=== PATIENT | female | born 1955 | race Asian ===

== ENCOUNTER 2020-06-06 04:56 | Observation (INO) | payer MEDICARE, OTHER, SELFPAY ==
[2020-06-06] VITALS (21 sets, daily range): BP systolic 122–200; BP diastolic 61–93; PULSE 76–90; RESP 14–21; TEMP 36.4–36.8; O2SAT 96–100; BMI 24.2; BMI 24.5
--- NOTE | 2020-06-06 05:00 | DI.RAD.S_ITS ---
PROCEDURE: XR CHEST 1V INDICATIONS: shortness of breath TECHNIQUE: One view of the chest was acquired. COMPARISON: None. FINDINGS: Surgical changes and devices: None. Lungs and pleura: Lungs are clear. No pleural effusions or pneumothorax. Mild increased pulmonary vascularity. Mediastinum: Mediastinal contours appear normal. Heart size is enlarged. Bones and chest wall: No suspicious bony lesions. Overlying soft tissues appear unremarkable. IMPRESSION: Mild increased vascularity suggestive of edema. Dictated by: Sameera Linn M.D. on 06/06/2020 at 9:23 Approved by: Sameera Linn M.D. on 06/06/2020 at 9:25
--- NOTE | 2020-06-06 05:23 | ED_ITS ---
HPI - Chest Pain General Chief Complaint: Chest Pain Stated Complaint: hard to breath Time Seen by Provider: 06/06/20 04:58 Source: patient Mode of arrival: Ambulatory Limitations: no limitations and language barrier History of Present Illness HPI narrative: Patient is a 64-year-old female who arrives for evaluation of left-sided chest pressure. Her arrival stated complaint was that it was hard to breathe however upon further evaluation by myself and nursing staff it appears she is here more for chest pain than shortness of breath. She does states that she has left-sided pain that started approximately 2100 hours last night. She was cooking at the time of onset. She thinks that it has been consistent since then. She thinks she has had all night however it does seem to have times when it is worse than others. Last evening she thought she was nauseous but not currently. Has tried a heating pad over the area without any improvement. She is diabetic. Has never anything like this in the past. Related Data Allergies Allergy/AdvReac Type Severity Reaction Status Date / Time No Known Drug Allergies Allergy Verified 06/06/20 05:15 Review of Systems Constitutional Constitutional: Denies fever(s) and Denies headache(s) ENT Ears, Nose, Mouth, and Throat: Denies headache(s) Cardiovascular Cardiovascular: Reports chest pain Respiratory Respiratory: Denies cough and Reports pain on inspiration Gastrointestinal Gastrointestinal: Denies abdominal pain and Denies vomiting Integumentary/Breasts Skin/Breast: Denies lesions and Denies rash Neurologic Neurologic: Denies behavioral changes and Denies headache(s) Psychiatric Psychiatric: Denies behavioral changes Hematologic/Lymphatic On Anticoagulants: No Allergic/Immunologic Allergic/Immunologic: Denies urticaria Patient History Medical History (Updated 06/06/20 @ 06:23 by Rogerio Gee DO) Diabetes Social History Smoking Status: Never smoker Smoking Status: Never smoker alcohol intake frequency: 0-2 drinks per day Substance Use Type: does not use Exam Initial Vital Signs Initial Vital Signs: Vital Signs Temperature 97.8 F 06/06/20 05:08 Pulse Rate 87 06/06/20 05:08 Respiratory Rate 20 06/06/20 05:08 Blood Pressure 200/93 H 06/06/20 05:08 Pulse Oximetry 100 06/06/20 05:08 Const General: cooperative Limitations: mental status not altered [facility] [place] Head: normal to inspection and normocephalic Chest Chest: No crepitus and No tenderness Resp Effort & Inspection: normal respiratory effort Auscultation: clear to auscultation bilaterally Cardio Rate: regular rate Rhythm: regular rhythm GI Inspection: non-distended Palpation: soft and No tender Skin Lesions: no lesions Rashes: no rashes Neuro General: patient alert and patient awake Cognition: normal cognition Speech: speech normal Extrem General: normal to inspection and capillary refill normal Psych Appearance: grossly normal and well kempt Scores HEART Score Heart Score history: Moderately Suspicious Heart Score EKG: Normal Heart Score Age: > or = 65 years old Heart Score risk factors: 1-2 risk factors Heart Score troponin: < or = to normal limit Heart Score Total: 4 Course Orders Ordered: ED Orders 06/06/20 05:00 XR chest 1V Stat 06/06/20 05:01 EKG-12 Lead Stat 06/06/20 05:10 COVID19 Stat Complete Blood Count AUTO DIFF Stat Comprehensive Metabolic Panel Stat Lipase Stat Troponin & CK Cardiac Panel Stat Discontinued Medications Aspirin (Aspirin 81 Mg Chew Tab) 324 mg PO NOW ONE Stop: 06/06/20 06:14 Last Admin: 06/06/20 06:17 Dose: 324 mg Documented by: Al Hydrox/Mg Hydrox/Simethicone 20 ml/ Lidocaine HCl 15 ml 0 ml PO NOW ONE Stop: 06/06/20 05:36 Last Admin: 06/06/20 05:42 Dose: 35 ml Documented by: Nitroglycerin (Nitroglycerin 0.4 Mg Sl Tab) 0.4 mg SL [id number] PRN PRN Reason: Chest Pain Last Admin: 06/06/20 05:41 Dose: 0.4 mg Documented by: Vital Signs Vital signs: Vital Signs - 8 hr 06/06/20 05:08 06/06/20 05:14 06/06/20 05:18 Temperature 97.8 F Pulse Rate 87 80 82 Respiratory Rate 20 Blood Pressure 200/93 H 168/64 H Pulse Oximetry 100 100 99 06/06/20 05:28 06/06/20 05:30 06/06/20 05:33 Temperature Pulse Rate 78 80 78 Respiratory Rate 17 Blood Pressure 168/64 H 154/69 H 154/69 H Pulse Oximetry 99 06/06/20 05:35 06/06/20 05:40 06/06/20 05:41 Temperature Pulse Rate 85 84 85 Respiratory Rate 17 17 Blood Pressure 144/67 H 133/61 133/61 Pulse Oximetry 97 99 06/06/20 05:45 06/06/20 05:50 06/06/20 05:55 Temperature Pulse Rate 90 83 79 Respiratory Rate 21 16 18 Blood Pressure 142/68 H 126/61 130/66 Pulse Oximetry 96 98 98 06/06/20 06:00 Temperature Pulse Rate 79 Respiratory Rate 15 Blood Pressure 133/70 Pulse Oximetry 98 MDM - Chest Pain Lab Data Attestation: I reviewed the patient's lab results. Result diagrams: 06/06/20 05:10 06/06/20 05:10 Labs: Lab Results 06/06/20 06/06/20 06/06/20 Range/Units 05:10 05:10 05:10 WBC 10.1 (4.5-11.0) X10^3/uL RBC 4.69 (4.0-5.2) X10^6/uL Hgb 13.7 (12.0-16.0) g/dL Hct 42.0 (36-46) % MCV 89.7 (80-100) fL MCH 29.3 (26-34) PG MCHC 32.7 (30-36) % RDW 13.1 (11.6-14.8) % Plt Count 279 (150-400) X10^3/uL Neut % (Auto) 59.6 (50-75) % Lymph % (Auto) 27.0 (25-40) % [place] % (Auto) 9.8 (3-14) % Eos % (Auto) 3.0 (2-4) % Baso % (Auto) 0.6 (0-2) % Neut # (Auto) 6000 (4752-6118) /uL Lymph # (Auto) 2700 (1342-9233) /uL [place] # (Auto) 1000 H (0-900) /uL Eos # (Auto) 300 (0-450) /uL Baso # (Auto) 100 (0-100) /uL Sodium 137 (137-145) mmol/L Potassium 3.5 (3.4-5.1) mmol/L Chloride 102 (98-107) mmol/L Carbon Dioxide 27 (22-32) mmol/L BUN 12 (7-17) mg/dL Creatinine 0.36 L (0.52-1.04) mg/dL Estimated GFR > 60.0 (>60) mL/min BUN/Creatinine Ratio 33.3 H (6-22) Glucose 156 H (80-110) mg/dL Calcium 9.5 (8.4-10.2) mg/dL Total Bilirubin 0.5 (0.2-1.3) mg/dL AST 38 H (14-36) IU/L ALT 23 (<35) IU/L Alkaline Phosphatase 95 (38-126) U/L Total Creatine Kinase 281 H (30-135) U/L CK-MB (CK-2) 2.23 (<2.37) ng/mL CK-MB (CK-2) Rel Index 0.8 L (1.5-5.0) % Troponin I < 0.012 (0.01-0.034) ng/mL Total Protein 8.5 H (6.3-8.2) g/dL Albumin 4.6 (3.5-5.0) g/dL Globulin 3.9 (1.7-4.1) g/dL Albumin/Globulin Ratio 1.2 (1.0-2.8) Lipase (23-300) U/L SARS-CoV-2 (PCR) Negative (Negative) 06/06/20 Range/Units 05:10 WBC (4.5-11.0) X10^3/uL RBC (4.0-5.2) X10^6/uL Hgb (12.0-16.0) g/dL Hct (36-46) % MCV (80-100) fL MCH (26-34) PG MCHC (30-36) % RDW (11.6-14.8) % Plt Count (150-400) X10^3/uL Neut % (Auto) (50-75) % Lymph % (Auto) (25-40) % [place] % (Auto) (3-14) % Eos % (Auto) (2-4) % Baso % (Auto) (0-2) % Neut # (Auto) (7318-8370) /uL Lymph # (Auto) (6943-6844) /uL [place] # (Auto) (0-900) /uL Eos # (Auto) (0-450) /uL Baso # (Auto) (0-100) /uL Sodium (137-145) mmol/L Potassium (3.4-5.1) mmol/L Chloride (98-107) mmol/L Carbon Dioxide (22-32) mmol/L BUN (7-17) mg/dL Creatinine (0.52-1.04) mg/dL Estimated GFR (>60) mL/min BUN/Creatinine Ratio (6-22) Glucose (80-110) mg/dL Calcium (8.4-10.2) mg/dL Total Bilirubin (0.2-1.3) mg/dL AST (14-36) IU/L ALT (<35) IU/L Alkaline Phosphatase (38-126) U/L Total Creatine Kinase (30-135) U/L CK-MB (CK-2) (<2.37) ng/mL CK-MB (CK-2) Rel Index (1.5-5.0) % Troponin I (0.01-0.034) ng/mL Total Protein (6.3-8.2) g/dL Albumin (3.5-5.0) g/dL Globulin (1.7-4.1) g/dL Albumin/Globulin Ratio (1.0-2.8) Lipase 189 (23-300) U/L SARS-CoV-2 (PCR) (Negative) Urine Dip Bedside Urine Glucose Negative Bedside Urine Bilirubin - Negative Bedside Urine Ketone - Negative Urine Specific [place] 1.015 Bedside Urine Occult Blood - Negative Bedside Urine pH 6 Bedside Urine Protein - Negative Bedside Urine Urobilinogen - Negative Bedside Urine Nitrite - Negative Bedside Urine Leukocytes - Negative Esterase Imaging Data Chest x-ray: Radiologist's Impression: Preliminary read No acute cardiopulmonary abnormality ECG Data Attestation: I personally reviewed and interpreted this ECG as follows: Prior ECG tracings: not available for review Interpretation: Sinus rhythm Ventricular rate is 77 Normal axis Normal QRS Normal QTC No ST T wave changes MDM Narrative Medical decision making narrative: Patient does have a history of diabetes. She reports no diagnosis of hypertension. Chest discomfort started last evening. Not worse with palpation or movement. Does cause some more discomfort with taking a deep breath. Minimal if any improvement with the nitroglycerin however this did improve her blood pressure. Potentially some improvement with the GI cocktail however she is not convinced of this. Her labs are unremarkable to include a troponin. She has never had risk stratification. Has a heart score of 4. She was given an aspirin. I did discuss with her and her sister about coming to the hospital for further testing in expressed understanding and agreement. Discussed the case with LEIGHTON Cosby the [facility] provider who will admit for further evaluation and treatment. Discharge Plan Departure Patient Disposition: Admitted as Observation Clinical Impression: Chest pain, Hypertension Admit Date/Time: 06/06/20 06:16 Admit Provider: Phu Cosby
[2020-06-06 05:24] LABS: Add Manual Diff / Slide Review NO; Basophils Absolute Auto 100 /uL (0-100); Basophils Percent Auto 0.6 % (0-2); Eosinophils Absolute Auto 300 /uL (0-450); Hemoglobin 13.7 g/dL (12.0-16.0); Lymphocytes Absolute Auto 2700 /uL (1100-4500); Mean Corpuscular HGB Conc 32.7 % (30-36); Mean Corpuscular Hemoglobin 29.3 PG (26-34); Mean Corpuscular Volume 89.7 fL (80-100); Monocytes Absolute Auto 1000 /uL (0-900); Monocytes Percent Auto 9.8 % (3-14); Neutrophils Absolute Auto 6000 /uL (1500-7000); Neutrophils Percent Auto 59.6 % (50-75); Platelet Count 279 X10^3/uL (150-400); Red Blood Cell Count 4.69 X10^6/uL (4.0-5.2); Red Cell Distribution Width 13.1 % (11.6-14.8); White Blood Cell Count 10.1 X10^3/uL (4.5-11.0)
[2020-06-06] MEDS: NITROGLYCERIN 0.4 MG SL TAB SL ×3 (05:28→05:41)
[2020-06-06 05:32] LABS: COVID19 -Nasal RAPID Negative (Negative)
[2020-06-06 05:36] LABS: Alanine Aminotransferase 23 IU/L (<35); Albumin 4.6 g/dL (3.5-5.0); Albumin Globulin Ratio 1.2 (1.0-2.8); Alkaline Phosphatase 95 U/L (38-126); Aspartate Aminotransferase 38 IU/L (14-36); BUN Creatinine Ratio 33.3 (6-22); Bilirubin Total 0.5 mg/dL (0.2-1.3); Blood Urea Nitrogen 12 mg/dL (7-17); Calcium 9.5 mg/dL (8.4-10.2); Carbon Dioxide 27 mmol/L (22-32); Chloride 102 mmol/L (98-107); Creatine Kinase 281 U/L (30-135); Estimated Glomerular Filt Rate > 60.0 mL/min (>60); Globulin 3.9 g/dL (1.7-4.1); Glucose 156 mg/dL (80-110); Potassium 3.5 mmol/L (3.4-5.1); Sodium 137 mmol/L (137-145); Total Protein 8.5 g/dL (6.3-8.2)
[2020-06-06] MEDS: MAG HYDROX/ALUMINUM/SIMETH SUS 20 ML, LIDOCAINE VISCOUS 2% 15 ML PO (05:42)
[2020-06-06 05:48] LABS: Troponin I < 0.012 ng/mL (0.01-0.034)
[2020-06-06 05:52] LABS: CKMB % Relative Index 0.8 % (1.5-5.0); Creatine Kinase MB 2.23 ng/mL (<2.37); HEMOLYSIS 23 (0-50)
[2020-06-06 06:07] LABS: Lipase 189 U/L (23-300)
[2020-06-06] MEDS: ASPIRIN 81 MG CHEW TAB 324 MG PO (06:17)
--- NOTE | 2020-06-06 07:12 | PM.HP.1 ---
History of Present Illness History of Present Illness Date Patient Seen: 06/06/20 Time Patient Seen: 06:50 Chief complaint: hard to breath Narrative: Is a 64-year-old female patient with a past medical history significant for hypertension and diabetes type 2 [id number] presents to the ER with complaints of chest pain the patient reports onset of chest pain at approximately 9:00 p.m. last night described as sharp left parasternal nonpleuritic and nonradiating. The patient reports associated nausea at the time of onset. She describes her pain as waxing and waning somewhat and presently 3/10. Onset of pain was while she was cooking. The patient relates a prior episode chest pain 6 years ago which she describes as very similar and did not have a full cardiac workup. She was diagnosed with diabetes at that time. She denies recent illness flu or cold symptoms and has had no COVID-19 exposures. She denies fevers or chills, headaches or dizziness. She reports no neck or back pain. She has chest pain as above and denies heart palpitations. She denies complaints of shortness of breath or exertional dyspnea. She has had no cough or wheezing. She denies epigastric or pain and had transient nausea which has resolved. She denies to diarrhea or constipation and has not no urinary symptoms of urgency burning or frequency. The patient has active currently works in is independent in all ADLs. Upon arrival the ER the patient is afebrile with temperature of 97.8, heart rate of 87, blood pressure 200/93 respiratory rate of 20 saturating 100% on room air. A chest x-ray was taken which was unremarkable and a 12 lead EKG finds sinus rhythm at a rate of 77 without ectopy block, no ST or T-wave changes no indication of infarct. On laboratory analysis her CBC is unremarkable with a 1 per cell count of 10.1, hemoglobin of 13.7 hematocrit of 42 and platelets of 279. Chemistries are within normal range with a potassium of 3.5 and a BUN of 12 and creatinine 0.36. Her nonfasting glucose is 156. Hemoglobin A1c is 8.5. On liver function she does have an elevated AST of 38. Her total CK is 281 with a CK-MB of 2.23 index is 0.8. Her initial troponin is less than 0.012. In the ER the patient received nitroglycerin x1 with no significant change chest discomfort however blood pressure reduced from 200 systolic to 126. Patient was also given a GI cocktail which also did not produce a significant change in the patient's discomfort. She received aspirin 324 mg chewed. Patient admitted to the hospitalist service for chest pain. Patient History Medical History (Updated 06/06/20 @ 07:13 by JF Elmore) Chest pain Diabetes Hypertension Surgical History (Updated 06/06/20 @ 07:18 by JF Elmore) No pertinent past surgical history Family & Social History Family History (Updated 06/06/20 @ 07:19 by JF Elmore) Father Asthma Mother No significant medical problems Social History: household members none Prior Living Arrangements House Safety & Behavioral: Feels Safe in Current Yes Environment Been Physically Hurt or No Threatened By a Person Suicidal Ideation Description None Suicide Plan Description No Plan Tobacco & Substance use: Smoking Status Never smoker alcohol intake frequency 0-2 drinks per day Substance Use Type does not use Meds Home Medications and Allergies Home Medications Medication Instructions Recorded Confirmed Type aspirin 81 mg PO DAILY 06/06/20 06/06/20 History metformin 500 mg PO BID 06/06/20 06/06/20 History Allergies Allergy/AdvReac Type Severity Reaction Status Date / Time No Known Drug Allergies Allergy Verified 06/06/20 05:15 Review of Systems Review of Systems ROS: Yes All systems reviewed with the patient and are negative except as otherwise documented Exam Vital Signs (past 8 hours): - 06/06/20 05:08 06/06/20 05:14 06/06/20 05:18 Temperature 97.8 F Pulse Rate 87 80 82 Respiratory Rate 20 Blood Pressure 200/93 H 168/64 H Pulse Oximetry 100 100 99 06/06/20 05:28 06/06/20 05:30 06/06/20 05:33 Temperature Pulse Rate 78 80 78 Respiratory Rate 17 Blood Pressure 168/64 H 154/69 H 154/69 H Pulse Oximetry 99 06/06/20 05:35 06/06/20 05:40 06/06/20 05:41 Temperature Pulse Rate 85 84 85 Respiratory Rate 17 17 Blood Pressure 144/67 H 133/61 133/61 Pulse Oximetry 97 99 06/06/20 05:45 06/06/20 05:50 06/06/20 05:55 Temperature Pulse Rate 90 83 79 Respiratory Rate 21 16 18 Blood Pressure 142/68 H 126/61 130/66 Pulse Oximetry 96 98 98 06/06/20 06:00 06/06/20 06:05 06/06/20 06:10 Temperature Pulse Rate 79 76 77 Respiratory Rate 15 14 21 Blood Pressure 133/70 135/63 130/66 Pulse Oximetry 98 98 99 06/06/20 06:15 06/06/20 06:20 06/06/20 06:35 Temperature 98.2 F Pulse Rate 78 80 80 Respiratory Rate 14 14 14 Blood Pressure 135/70 140/75 140/75 Pulse Oximetry 99 98 98 06/06/20 06:45 Temperature 98.2 F Pulse Rate 79 Respiratory Rate 16 Blood Pressure 134/74 Pulse Oximetry 97 Oxygen Delivery Method Room Air Oxygen Flow Rate 0 Narrative Exam Narrative: GENERAL APPEARANCE: well developed, well nourished, resting quietly in bed in no acute distress. HEENT: Normocephalic, PERRLA, conjunctiva clear, EOMs intact without nystagmus, no sinus tenderness to percussion, no rhinorrhea, mucous membranes are pink and dry. NECK/THYROID: neck supple, no JVD, no thyromegaly, trachea midline. LYMPH NODES: no cervical or supraclavicular lymphadenopathy. SKIN: [place], warm and dry, no visible lesions, rashes, ulcerations or petechiae. HEART: regular rate and rhythm, S1-S2, no murmur, no rubs or gallops, brisk capillary refill, no edema LUNGS: clear to auscultation bilaterally, no coarseness crackles or wheezing, no cough present CHEST: Symmetrical movement, no accessory muscle use, good tidal volume, no reproducible pain on AP and lateral compression ABDOMEN: Soft, no distention, no epigastric abdominal tenderness, no guarding or peritoneal signs, no organomegaly, no flank tenderness, active bowel tones. EXTREMITIES: moves all extremities, strength is 5/5 and symmetrical, no deformities or joint effusions. NEUROLOGIC: AAO x4, no focal or lateralizing neurologic deficits, cranial nerves II-XII grossly intact, sensation intact to light touch, hearing grossly normal to speech. PSYCH: Alert, briskly responsive, linear thought process, cooperative, appropriate with stable behavior Objective Labs Result Diagrams: 06/06/20 05:10 06/06/20 05:10 Labs: Laboratory Results - last 24 hr 06/06/20 06/06/2006/06/21 05:10 05:10 05:10 WBC 10.1 RBC 4.69 Hgb 13.7 Hct 42.0 MCV 89.7 MCH 29.3 MCHC 32.7 RDW 13.1 Plt Count 279 Neut % (Auto) 59.6 Lymph % (Auto) 27.0 [place] % (Auto) 9.8 Eos % (Auto) 3.0 Baso % (Auto) 0.6 Neut # (Auto) 6000 Lymph # (Auto) 2700 [place] # (Auto) 1000 H Eos # (Auto) 300 Baso # (Auto) 100 Sodium 137 Potassium 3.5 Chloride 102 Carbon Dioxide 27 BUN 12 Creatinine 0.36 L Estimated GFR > 60.0 BUN/Creatinine Ratio 33.3 H Glucose 156 H Calcium 9.5 Total Bilirubin 0.5 AST 38 H ALT 23 Alkaline Phosphatase 95 Total Creatine Kinase 281 H CK-MB (CK-2) 2.23 CK-MB (CK-2) Rel Index 0.8 L Troponin I < 0.012 Total Protein 8.5 H Albumin 4.6 Globulin 3.9 Albumin/Globulin Ratio 1.2 Lipase SARS-CoV-2 (PCR) Negative 06/06/20 05:10 WBC RBC Hgb Hct MCV MCH MCHC RDW Plt Count Neut % (Auto) Lymph % (Auto) [place] % (Auto) Eos % (Auto) Baso % (Auto) Neut # (Auto) Lymph # (Auto) [place] # (Auto) Eos # (Auto) Baso # (Auto) Sodium Potassium Chloride Carbon Dioxide BUN Creatinine Estimated GFR BUN/Creatinine Ratio Glucose Calcium Total Bilirubin AST ALT Alkaline Phosphatase Total Creatine Kinase CK-MB (CK-2) CK-MB (CK-2) Rel Index Troponin I Total Protein Albumin Globulin Albumin/Globulin Ratio Lipase 189 SARS-CoV-2 (PCR) Assessment & Plan Assessment & Plan narrative: This is a 64-year-old female presents to the ER with complaints of chest pain onset at 9:00 p.m. last night that has been consistent though waxes and wanes somewhat through the course of the night. The patient has associated nauseated onset. She describes her current chest pain as similar to what she experienced 6 years ago. 1. Acute chest pain rule out ACS, present on admission, active. -patient with prior episode of chest pain but does not recall a specific diagnosis. Chest pain is left parasternal sharp in character and nonradiating and nonpleuritic. Patient has risk factors of hypertension and diabetes but no family history. -12 lead EKG is normal sinus rhythm at rate of 77 without ectopy or block, no ST or T-wave changes and no other evidence of infarct. -initial troponin is negative, total CK is 281 with an MB of 2.23 an index is 0.8. Will obtain serial troponins neck is at 10:00 a.m. and again at 4:00 p.m. -ordered nitroglycerin 0.4 mg sublingual Q 5 minutes x3 as needed for chest pain and morphine sulfate 2 mg IV or as needed for chest pain. -ordered aspirin 81 mg daily. -ordered atorvastatin 20 mg daily at bedtime. -ordered cardiac stress test. The patient has no complaints of dyspnea breath sounds are clear and has had no peripheral edema and will defer on echocardiogram. 2. Hypertension, chronic, stable -Patient presents with a blood pressure of 200/93 on arrival to the ER -patient does not routinely take antihypertensives. She received nitroglycerin sublingual x1 in the emergency department with improvement of blood pressure to the 120s to 130 systolic. -follow blood pressure closely and treat as indicated. 3. Diabetes type 2 [id number], chronic, stable. -patient does endorse that she is inconsistent with taking her metformin and has not been checking her blood sugars recently as she has run out of supplies. -ordered fingerstick blood sugars a.c. and HS with correctional insulin low-dose scale. -ordered metformin 500 mg b.i.d.. -added a hemoglobin A1c which is found to be 8.5. VTE prophylaxis: Enoxaparin IV fluid: Saline lock Diet: Consistent carbohydrate, heart healthy Code status: Full code, the patient designates her daughter Lindsey be her surrogate decision maker. The patient is admitted to the hospital due to the severity of her complaints and risk for potential complications adverse events requiring further monitoring and evaluation. The patient is admitted as observation with expected length of stay to be less than 2 midnights. COVID-19 COVID-19 status: Negative Result date/Date tested (Pos, Neg/Pending): 06/06/20 Scores GCS [place] coma scale eye opening: Spontaneous Jackie coma scale verbal response: Orientated [place] coma scale motor response: Obey commands Jackie coma scale total score: 15 Quality VTE Deep Vein Thrombosis/Pulmonary Embolism Present on Admission: No
[2020-06-06 07:18] LABS: Cholesterol 209 mg/dL (140-199); HDL Cholesterol 52 mg/dL (40-60); LDL Cholesterol Calculated 132 mg/dL (<100); Triglycerides 124 mg/dL (35-150)
[2020-06-06 07:25] LABS: Hemoglobin A1C% w Est Avg Glu 8.5 % (4.0-6.0)
[2020-06-06] MEDS: METFORMIN HCL 500 MG TABLET PO (09:07)
[2020-06-06] MEDS: ENOXAPARIN 40 MG/0.4 ML SYRINGE SUBCUT (09:08)
[2020-06-06] MEDS: SODIUM CHLORIDE 0.9% FLUSH 10 ML IV (09:08)
[2020-06-06 10:51] LABS: Troponin I < 0.012 ng/mL (0.01-0.034)
--- NOTE | 2020-06-06 12:26 | PC.NURSE ---
Addendum entered by Temitope Sanchez R.N. 06/06/20 12:34: 1230- pt returned to unit by w/c, Tele placed, pt set up for lunch. Original Note: 1115- pt off unit for stress test, left by w/c accompanied by marine services technician.
--- NOTE | 2020-06-06 13:37 | DI.NM.S_ITS ---
DATE OF SERVICE: PROCEDURE: Exercise perfusion study. DATE OF STUDY: 06/06/2020 INDICATIONS: Chest pain with underlying diabetes mellitus and hypertension. RADIOPHARMACEUTICAL: 24.7 millicurie technetium-99m Myoview IV was injected at stress. Please note this is exercise stress perfusion study only. CARDIAC STRESS: The patient underwent exercise stress test under the supervision of attending staff. She walked on Adalid protocol for 5 minutes and 46 seconds, achieved 106 percent of target heart rate with normal blood pressure response, 7 METs of workload and functional aerobic impairment +7%. Patient did not have any chest pain, but felt fatigued. Baseline rhythm was sinus. During stress, there were significant artifacts seen. However, in the immediate recovery, there were some nonspecific ST-T changes. The patient has frequent ventricular couplets without any sustained ventricular tachycardia. RAW DATA: There is increased subdiaphragmatic activity. GATED STUDY: Stress LV ejection fraction 85% without any obvious wall motion abnormalities. Stress end-diastolic volume 60 mL. Lung/heart ratio 0.32, which is within normal limits. MYOCARDIAL PERFUSION SCAN: Stress supine and stress prone images were compared to each other. Stress supine images revealed a small size, minimally decreased perfusion of basal inferior wall, which got completely resolved during the stress prone images. The stress prone images revealed normal myocardial perfusion. CONCLUSION: I will call this study a normal myocardial perfusion study with evidence of diaphragmatic tissue attenuation artifact which got resolved during prone images. Diminished exercise tolerance. Normal hemodynamic response. No chest pain. The patient has frequent ventricular couplets without any ventricular tachycardia during stress. Faizan Ayala - OZZY/diamond/rosa doc#: [id number]/job#: [id number] dd: 06/06/2020 13:06:00 dt: 06/06/2020 13:30:00 DICTATING MD/COPIES TO: Kushal Darnell MD COPIES MNE: BARBRA;
--- NOTE | 2020-06-06 14:25 | PM.EVENT ---
Event Note Date Patient Seen: 06/06/20 Event Note: The patient is a 64-year-old female who was admitted to the hospital for chest pain. The patient reports no further chest pain. She underwent nuclear medicine stress testing today which was negative for ischemia. The patient had normal LV function, normal cardiac enzymes, and unremarkable EKG. She was discharged home to follow-up with her PCP. Patient was placed on a statin, she will continue this as she is diabetic and it is recommended for treatment of for diabetics to decrease cardiovascular disease. Patient was deemed appropriate for discharge. Her lungs were clear, cardiac exam regular rate and rhythm normal S1-S2, abdomen soft nontender, patient was referred to have acute tear as for an outpatient evaluation.
--- NOTE | 2020-06-06 15:14 | PC.NURSE ---
Pt discharge education given, discussed- medications, activity, diet, s/s of stroke, reasons to seek medical attention, worsening symptoms, f/u appts. IV removed, intact, tolerated well. Tele removed, BROADCAST TRAFFIC COORDINATOR informed. Pt dressed independently. All belongings packed. Pt left with RN assistance, ambulatory to ER entrance.
--- NOTE | 2020-06-06 15:50 | CM.DANOTE ---
Brief Assessment: Briefly reviewed EMR. Per provider in AM rounds patient will most likely d/c home today without any d/c planning needs. P: Home today with no anticipated needs. TOÑA Cam
== END 2020-06-06 15:16 | disposition home or self-care (01) ==
LOC: ED 06:16 → AC 06:18
PROVIDERS: Admitting Provider Nurse Practitioner Adult Health; Emergency Provider Emergency Medicine; Family Provider Family Medicine; PCP Family Medicine; Visit Provider Nurse Practitioner Adult Health
DX: R07.89 Other chest pain (principal); R06.02 Shortness of breath; E11.9 Type 2 diabetes mellitus without complications; I10 Essential (primary) hypertension; Z79.84 Long term (current) use of oral hypoglycemic drugs; Z20.822 Contact with and (suspected) exposure to COVID-19
CPT/HCPCS: 36415; 71045; 78451; 80053; 80061; 81003; 82550; 82553; 82962; 83036; 83690; 84443; 84484; 85025; 87635; 93005; 96372; 99283; 99284; C9803; G0378; A9502; J1650

== ENCOUNTER 2025-01-30 07:56 | Day surgery (SDC) | payer MEDICARE, OTHER, SELFPAY ==
[2020-06-06 06:27] VITALS: BMI 24.5
--- NOTE | 2025-01-30 | PATH_ITS ---
[facility] Accession Number: [id number] No. of containers..02 Tissue . 01 Material submitted: . PART A: colon - ASCENDING POLYP PART B: colon - COLON, 20 CM POLYP . 01 Diagnosis: Part A: ASCENDING POLYP: Tubular adenoma. . Part B: COLON, 20 CM POLYP: Hyperplastic polyp. [facility] 02/09/20257 Local . 01 Electronically signed: . Neto Serna MD, Pathologist NPI- [id number] . 01 Gross description: . . . . Received two formalin-filled containers, both labeled with the patient's name: . A. In a container labeled ascending polyp, the specimen consists of one fragment of lacy soft tissue which measures 0.5 x 0.3 x 0.3 cm. The specimen is totally submitted in cassette A. . B. In a container labeled 20 cm polyp colon, the specimen consists of one fragment of lacy soft tissue which measures 0.7 x 0.6 x 0.6 cm. The specimen is totally submitted in cassette B. ([id number]) /[facility] 02/09/[id number] Local . 01 Pathologist provided ICD-10: D12.2, K63.5 . 01 CPT . 459823, [id number] Specimen Comment: A courtesy copy of this report has been sent to [phone] Performed at: [address] [id number] MD Neto Serna MD Phone: [phone]
[2025-01-30 09:04] VITALS: BP 145/76; PULSE 93; RESP 16; TEMP 36.2; O2SAT 98
[2025-01-30] MEDS: LACTATED RINGERS 1,000 ML 42 ML IV (09:13)
--- NOTE | 2025-01-30 09:30 | PM.HP.IH.1 ---
History of Present Illness History of Present Illness Date Patient Seen: 01/30/25 Chief complaint: Screening Colonoscopy [facility] Medical History Chest pain Hypertension Diabetes Surgical History No pertinent past surgical history Family History Father Asthma Mother No significant medical problems Social History household members: none Smoking Status: Former smoker Meds Home Medications and Allergies Home Medications ?Medication ?Instructions ?Recorded ?Confirmed ?Type aspirin 81 mg tablet 81 mg PO DAILY PRN Fatigue 06/06/20 01/30/25 History atorvastatin 20 mg tablet (Lipitor) 20 mg PO BEDTIME #30 tabs 06/06/20 01/30/25 Rx metformin 500 mg tablet 500 mg PO DAILY 06/06/20 01/30/25 History atorvastatin 40 mg tablet 40 mg PO DAILY 11/14/24 01/30/25 History lisinopril 10 mg tablet 10 mg PO DAILY 11/14/24 01/30/25 History sodium,potassium,mag sulfates 17.5 See Rx Instructions PO .COMPLEX 12/29/24 Rx gram-3.13 gram-1.6 gram oral soln #354 mL (Suprep Bowel Prep Kit) Allergies Allergy/AdvReac Type Severity Reaction Status Date / Time No Known Drug Allergies Allergy Verified 01/30/25 09:03 Exam Vital Signs (past 8 hours): - 01/30/25 09:04 Temperature 97.2 F L Pulse Rate 93 H Respiratory Rate 16 Blood Pressure 145/76 H Pulse Oximetry 98 Oxygen Delivery Method Room Air Oxygen Delivery Method Room Air Narrative Exam Narrative: Oropharynx free of lesions Chest clear to auscultation percussion Cardiac exam reveals no S3 or murmur Objective Labs Labs: Laboratory Results - last 24 hr 01/30/25 09:03 POC Whole Bld Glucose 125 H Assessment & Plan Assessment & Plan narrative: Need for screening colonoscopy for colorectal cancer issues. Last colonoscopy many years ago. Risks, benefits, alternatives have been explained. Time-Based Coding :: [TOTAL MINUTES] spent with patient and on the chart (including review of chart, obtaining history, exam, reviewing outside data, placing orders, documenting exam and treatment plan, and counseling patient) on [DATE]. PROFEE Boiler/Chiller Technician Document charge(s): No
--- NOTE | 2025-01-30 09:31 | PM.OP.COLON ---
Operative Date/Time/Diagnoses Date of procedure: 01/30/25 Time of procedure: 10:08 Pre-op diagnosis: See indication and findings Post-op diagnosis: same Procedure & Clinicians Study performed: Colonoscopy Same procedure(s) as scheduled: Yes Indications: Colorectal cancer screening Surgeon: Ludmila Rodríguez Anesthesia Type: Other Procedure Notes Procedure in detail: After informed consent was obtained the patient was placed in left lateral decubitus position. The video colonoscope was introduced the rectum slowly advanced cecum. Preparation was good. On slow withdrawal mucosa was carefully examined. The scope was removed. Patient tolerated procedure well. Blood loss none Complications none Sedation mac Findings 1. 6 mm polyp in the ascending colon cold snared and removed completely 2. One point 0 cm polyp at 20 cm. Attempts were made cold snare but needed have cautery to get it to release. 3. Otherwise negative colonoscopy to cecum Patient will need follow-up colonoscopy in 3-5 years based on the pathology. I would not be surprised if this polyp at 20 cm was a leiomyoma Estimated Blood Loss: 0 Complications: none
--- NOTE | 2025-01-30 10:07 | SUR.OPER ---
CAUTERY ENDO UNIT USED SETTINGS 25 COAG AND 3 CUT GROUNDING PAD ON RIGHT THIGH CLEAR
[2025-01-30 10:09] VITALS: BP 113/61; PULSE 80; RESP 16; TEMP 36.6; O2SAT 94
[2025-01-30 10:13] VITALS: BP 105/53; PULSE 81; RESP 16; O2SAT 94
[2025-01-30 10:18] VITALS: BP 108/66; PULSE 80; RESP 16; O2SAT 95
[2025-01-30 10:31] VITALS: BP 108/60; PULSE 73; RESP 16; TEMP 36.1; O2SAT 98
== END 2025-01-30 10:48 | disposition home or self-care (01) ==
PROVIDERS: PCP Family Medicine; Referring Provider Family Medicine; Visit Provider Internal Medicine Gastroenterology
PROC: 0DJD8ZZ Inspection of Lower Intestinal Tract, Via Natural or Artificial Opening Endoscopic (ICD-10-PCS; CPT 45378; principal; 2025-01-30 09:30)
DX: Z12.11 Encounter for screening for malignant neoplasm of colon (principal); D12.2 Benign neoplasm of ascending colon; K63.5 Polyp of colon; E11.9 Type 2 diabetes mellitus without complications; I10 Essential (primary) hypertension; E78.5 Hyperlipidemia, unspecified; Z79.84 Long term (current) use of oral hypoglycemic drugs; Z87.891 Personal history of nicotine dependence
CPT/HCPCS: 45385; 82962; J2704; J7120